=== PATIENT | male | born 1960 | race Caucasian/White ===

== ENCOUNTER 2016-07-02 04:11 | Inpatient (IN) | payer MEDICARE ==
[~2016-07-02] VITALS: Ht 185.4 cm; Wt 137.9 kg
[~2016-07-02 04:11] MED LIST: ASPIRIN EC81 MG PO; BROVANA15 MCG/2 M IH; COLACE-DPS100 MG PO; COUMADIN DPS3 MG PO; COUMADIN6 MG PO; DELTASONE DPS10 MG PO; DESYREL DPS100 MG PO; DULCOLAX-DPS5 MG PO; DUONEB DPS3 ML IH; FETZIMA80 MG PO; FLONASE 0.05% D16 GM NS; FLOVENT DISKUS50 MCG IH; IMDUR DPS30 MG PO; JANTOVEN6 MG PO; KEPPRA DPS500 MG PO; KEPPRA1000 MG PO; KLOR-CON M2020 ME1 PO; LASIX DPS40 MG PO; LASIX DPS80 MG PO; LEVAQUIN DPS750 MG PO; LISINOPRIL5 MG PO; LOTRISONE DPS45 GM TP; LOVENOX DP30 MG/0.3 SQ; METOPROLOL PO; MIRALAX PACKET17 GM PO; NITROSTAT0.4 MG SL; NORVASC DPS10 MG PO; PLAVIX75 MG PO; POTASSIUM PO; PROAIR HFA8.5 GM IH; PROTONIX40 MG PO; PULMICORT1 MG/2 ML IH; RANEXA500 MG PO; TOPROL XL DPS25 MG PO; TRIAMCINOLONE A15 GM TP; TYLENOL EXTRA500 M1 PO; WELLBUTRIN SR150 MG PO; ZESTRIL DPS10 MG PO; ZOCOR DPS40 MG PO
--- NOTE | 2016-07-02 07:05 | ER ---
ADMIT: 07/02/2016 RM/LOC: 520 [facility] MR#: [id number] [address] [facility] [address] [place], [place] [address] ALBINA MARTINEZ [address] [address] Emergency Room Report SEX: M AGE: 55 : 1960 DATE: 07/02/2016 CHIEF COMPLAINT: Respiratory distress. HISTORY OF PRESENT ILLNESS: The patient is a 55-year-old male with diastolic heart failure, COPD, right MCA stroke with left hemiparesis, chronically anticoagulated for AFib, presents tonight with increasing shortness of breath past 2 to 3 hours, treated en route with DuoNeb with minimal improvement. PAST MEDICAL HISTORY: ALLERGIES: MORPHINE, OXYCODONE. MEDICATIONS: Please see nurse's MAR. ILLNESSES: AFib, chronically anticoagulated; diastolic CHF; coronary artery disease, status post multiple interventions; hypertension; hyperlipidemia; COPD; right MCA with left hemiparesis; DVT; chronic kidney disease; seizure disorder; GERD; depression; chronic lymphedema in left upper and lower extremity; subdural hematoma in 1972. OPERATIONS: Bur holes, cardiac bypass in 1999 x1, seven PCI stents, pacemaker for permanent AFib, partial colectomy for diverticulitis with ileostomy. SOCIAL HISTORY: Past smoker. . Lives alone. No health aide. No illicit drugs or alcohol. FAMILY HISTORY: Positive for coronary artery disease. REVIEW OF SYSTEMS: A 12-point review of systems negative for all other systems, illnesses, or operations except as outlined above. PHYSICAL EXAMINATION: VITAL SIGNS: Temp 97.4, pulse 75, respirations 22, BP 139/86, SaO2 of 93% on room air. GENERAL: Mild respiratory distress, nontoxic, non-diaphoretic without jaundice or icterus. HEENT: Normocephalic. No evidence of epistaxis, rhinorrhea, or otorrhea. NECK: Supple without lymphadenopathy or thyromegaly. CHEST: Breath sounds equal, diminished with expiratory wheeze noted throughout. HEART: Regular rate and rhythm without murmur, gallop, or edema. ABDOMEN: Soft, obese, nontender, nondistended without mass or megaly. Bowel sounds hypoactive. EXTREMITIES: Venous stasis dermatitis with lymphedema and weeping areas bilaterally. Homans sign negative. MEDICAL DECISION MAKING: The patient received 2 DuoNebs, Solu-Medrol, magnesium with improvement. Lab remarkable for hemoglobin 12.5, lactic 2.4, potassium 3.3, CRP 0.81, D-dimer 0.19, BNP 459, INR 2.38. EKG shows AFib with ADMIT: 07/02/2016 RM/LOC: 520 [facility] MR#: [id number] [facility] [address] [address] ALBINA MARTINEZ [address] [place] [address] Emergency Room Report SEX: M AGE: 55 : 1960 low voltage, borderline T-waves, prolonged QTc of 540 milliseconds. Chest x- ray, no acute findings. Discussed findings and disposition with Dr. Sosa, who agrees to admit due to the patient's complex medical history as well as tenuous support systems. DIAGNOSES: 1. Acute exacerbation of chronic obstructive pulmonary disease. 2. Diastolic congestive heart failure. 3. Chronic atrial fibrillation, anticoagulated. 4. Venous stasis dermatitis. RECOMMENDATION: Admit inpatient Med/Surg for Dr. Sosa. ADMISSION/DISCHARGE CONDITION: Fair. Mack Montiel MD/ modl JOB #: [id number] CC: Harinder Sosa MD, Attending Physician Harinder Sosa MD, Family Physician Harinder Sosa MD
--- NOTE | 2016-07-05 19:46 | HP ---
ADMIT: 07/02/2016 RM/LOC: 520 [facility] MR#: [id number] [facility]#: [id number] 2620 [facility] [address] [place], [place] [address] ALBINA OLIVIA [address] [address] History and Physical SEX: M AGE: 55 : 1960 DATE OF SERVICE: CHIEF COMPLAINT: Shortness of breath, increased swelling of lower extremities. HISTORY OF PRESENT ILLNESS: Mr. Albina Olivia is a very nice 55-year-old man who is well known to myself. He does have chronic heart failure as well as COPD. He does have chronic dense left hemiparesis. He has been struggling with lymphedema. He is on anticoagulation for atrial fibrillation as well. Several days of increased cough as well as increased edema. He presented to the ER. He did have an appropriate evaluation in the ER, diagnosed with a COPD exacerbation, referred to me for admission. He was given steroids in the ER. I evaluated him at his bedside. He endorses the above history. PAST MEDICAL HISTORY: 1. Chronic atrial fibrillation on chronic anticoagulation. 2. Coronary artery disease with CABG. 3. COPD. 4. Systolic heart failure and diastolic heart failure. 5. History of DVT. 6. Chronic depression. 7. GERD. 8. Dense left hemiparesis secondary to right middle cerebral artery CVA. 9. Hyperlipidemia. 10.Hypertension. 11.Seizure disorder. 12.Chronic lymphedema, left upper extremity and bilateral lower extremities. MEDICATIONS: 1. Keppra 1000 mg daily. 2. Keppra 500 mg at bedtime. 3. Plavix 75 mg daily. 4. Coumadin 3 mg daily. 5. Lisinopril 10 mg daily. 6. Aspirin 81 mg daily. 7. Simvastatin 40 mg at bedtime. 8. Trazodone 100 mg at bedtime. 9. Norvasc 10 mg daily. 10.Imdur 60 mg daily. 11.Imdur 30 mg at night. 12.MiraLax 17 g daily. 13.Flonase 50 mcg inhaled daily. 14.Brovana twice daily. 15.Pulmicort twice daily. 16.Albuterol MDI p.r.n. 17.DuoNeb 4 times daily. 18.Lasix 80 mg daily. 19.Lasix 40 mg at noon. ADMIT: 07/02/2016 RM/LOC: 520 [facility] MR#: [id number] [address] [address] ALBINA OLIVIA [address] [place] [address] History and Physical SEX: M AGE: 55 : 1960 ALLERGIES: TO MORPHINE AND OXYCODONE. FAMILY HISTORY: Positive for coronary artery disease. SOCIAL HISTORY: He lives independently. He is . He has a son. He is a former smoker. He does not drink. REVIEW OF SYSTEMS: Complete review of systems reviewed per HPI. PHYSICAL EXAMINATION: VITAL SIGNS: Blood pressure 158/89, pulse 84, respiratory rate is 18, temperature is 97 degrees, and 93% on room air. GENERAL: He is alert and oriented x3. No acute distress. HEENT: Normocephalic, atraumatic. Extraocular muscles intact. Pupils equal and responsive to light. No nasal discharge. NECK: Supple. HEART: Irregular. LUNGS: Distant bilaterally with wheezing. ABDOMEN: Soft, nontender. EXTREMITIES: Left upper extremity lymphedema, dense left hemiparesis. He has bilateral increased lower extremity edema, right greater than left. He has an ulcer and associated cellulitis on right lower extremity as well. LABORATORY DATA: CBC; white blood cells are 7, hemoglobin is 12, and platelets 163. INR is 2.38. Lactic acid is 2.4. CMP; sodium is 141, potassium is 3.3, chloride is 102, bicarb is 30, BUN is 3, creatinine is 1.1, glucose 106, calcium is 8.4, total bilirubin 0.4, total protein 7.2, albumin is 3.3, AST is 15, ALT is 22, lipase 114, proBNP is 459. Chest x-ray, no vascular congestion. No pneumonia. ASSESSMENT AND PLAN: 1. Acute on chronic respiratory failure secondary to chronic obstructive pulmonary disease exacerbation. He is much improved just with steroids done in the ER. However, continue aggressive pulmonary toilet. I will maintain him on Zithromax and prednisone. 2. Cellulitis with venous stasis ulcer, right lower extremity. Venous stasis ulcer. We will place him on ceftriaxone and vancomycin. We will obtain Wound Care consult. 3. Lymphedema. We will place him in his EdemaWear on his bilateral lower extremities, as well as his left glove and left upper extremity sleeve. We will have Occupational Therapy come to see him as well and see if they can help him learn to use assistive devices, put these on as he does ADMIT: 07/02/2016 RM/LOC: 520 [facility] MR#: [id number] [address] [address] ALBINA OLIVIA [address] [place] [address] History and Physical SEX: M AGE: 55 : 1960 struggle greatly. 4. Hypertensive. May continue him on his chronic regimen. 5. Hyperlipidemia, chronic regimen. 6. Atrial fibrillation on chronic anticoagulation. INR is at goal. We will get daily INRs. 7. Chronic combined systolic and diastolic heart failure. He does not have a terribly elevated BNP, however, he is volume up on exam today. I will give him 80 mg of IV Lasix now and we will reassess and re-dose in the morning. Patient will be maintained on his Coumadin and this will be supervised for DVT prophylaxis. He is a full code. Discussed the plan with the patient, expressed understanding, was in agreement, had no further questions. Harinder Sosa MD/ anette JOB #: [id number] CC: Harinder Sosa, Attending Physician Harinder Sosa, Family Physician
--- NOTE | 2016-07-09 11:47 | DS ---
ADMIT: 07/02/2016 RM/LOC: 520 [facility] MR#: [id number] [facility]#: [id number] 2620 [facility] [address] [place], [place] [address] ALBINA MARTINEZ [address] [address] Discharge Summary SEX: M AGE: 55 : 1960 ADMISSION DATE: 07/02/2016 DISCHARGE DATE: 07/08/2016 DISCHARGE DIAGNOSES: 1. Chronic obstructive pulmonary disease with exacerbation. 2. Acute on chronic systolic congestive heart failure. 3. Chronic lymphedema. 4. Chronic atrial fibrillation, on chronic anticoagulation. 5. Coronary artery disease, status post coronary bypass grafting. 6. History of DVT (deep venous thrombosis). 7. Depression. 8. History of stroke. 9. Hyperlipidemia. 10.Hypertension. 11.History of seizure disorder. 12.Right lower extremity cellulitis. 13.Hypokalemia. CONSULTATIONS: None. PROCEDURES: None. REASON FOR ADMISSION: A very pleasant 55-year-old gentleman with past medical history. Admitted by Dr. Sosa with complaints of increasing edema, cough and shortness of breath. He was seen in the emergency room, and diagnosed with COPD exacerbation and admitted for further evaluation and treatment. For complete details, please see H and P dictated on the day of admission. HOSPITAL COURSE: At the time of admission, the patient was placed on inpatient telemetry bed by my partner, Dr. Harinder Sosa. As mentioned, was placed on telemetry. Was started on antibiotics, nebulized treatments and steroids for COPD exacerbation. He was seen by wound care due to his chronic lymphedema. PT and OT were actually seen and he was also started on IV diuretics. He was thought to have a little bit of a heart failure exacerbation. The patient slowly improved. His cellulitis continued to improve as did his lymphedema. He was hypokalemic and electrolytes replaced. ADMIT: 07/02/2016 RM/LOC: 520 [facility] MR#: [id number] 2620 [facility] [address] [place], [place] [address] ALBINA MARTINEZ [facility] [address] [address] Discharge Summary SEX: M AGE: 55 : 1960 Did well with wound care and he was switched to Med/surg. Diuretics were titrated. The patient continued to improve very slowly. As mentioned, was seen by PT and OT. His Coumadin was continued for treatment of his DVT and so metolazone was added. His antibiotics were tapered. He diuresed nicely. He was placed on fluid restriction. Continued to improve. Ambulated with physical therapy. Was thought to be ready for discharge home on 07/08. Discharge diet is 2 g sodium cardiac diet with fluid restriction by Dr. Sosa. He will finish a course of antibiotics and prednisone per his home med list. The rest of his medications are per his home med list. Activity is as tolerated. He will be seen by [facility] and will have lab recheck in the next couple of days including an INR and a BMP. I will have him see Dr. Sosa within the next 7 days or so. Roge Christensen MD/ pushpa JOB #: [id number] CC: Harinder Sosa MD, Attending Physician Harinder Sosa MD, Family Physician
[2016-07-09] MEDS ORDERED: ZESTRIL DPS10 MG PO (20:08)
[2016-07-09] MEDS ORDERED: KEPPRA DPS500 MG PO ×2 (20:08)
[2016-07-09] MEDS ORDERED: PLAVIX75 MG PO (20:08)
[2016-07-09] MEDS ORDERED: COUMADIN1 MG PO (20:08)
[2016-07-09] MEDS ORDERED: DESYREL DPS100 MG PO (20:09)
[2016-07-09] MEDS ORDERED: ZOCOR DPS40 MG PO (20:09)
[2016-07-09] MEDS ORDERED: ASPIRIN EC81 MG PO (20:09)
[2016-07-09] MEDS ORDERED: NORVASC DPS10 MG PO (20:09)
[2016-07-09] MEDS ORDERED: ISOSORBIDE MONO30 MG PO (20:10)
[2016-07-09] MEDS ORDERED: ISOSORBIDE MONO60 MG PO (20:10)
[2016-07-09] MEDS ORDERED: MIRALAX PACKET17 GM PO (20:10)
[2016-07-09] MEDS ORDERED: FLONASE 0.05% D16 GM NS (20:10)
[2016-07-09] MEDS ORDERED: PULMICORT1 MG/2 ML IH (20:11)
[2016-07-09] MEDS ORDERED: BROVANA15 MCG/2 M IH (20:11)
[2016-07-09] MEDS ORDERED: PROVENTIL HFA6.7 GM IH (20:12)
[2016-07-09] MEDS ORDERED: DUONEB DPS3 ML IH (20:12)
[2016-07-09] MEDS ORDERED: ZAROXOLYN2.5 MG PO (20:13)
[2016-07-09] MEDS ORDERED: LASIX DPS80 MG PO (20:13)
[2016-07-09] MEDS ORDERED: ZITHROMAX250 MG PO (20:13)
[2016-07-09] MEDS ORDERED: DELTASONE DPS10 MG PO (20:15)
[2016-07-09] MEDS ORDERED: KLOR-CON M2020 ME1 PO (20:16)
[2017-01-25] MEDS ORDERED: PULMICORT0.5 MG/2 M IH (18:40)
[2017-01-25] MEDS ORDERED: TYLENOL DPS325 MG PO (18:42)
[2017-01-25] MEDS ORDERED: AMBIEN DPS5 MG PO (18:43)
[2017-01-25] MEDS ORDERED: DULCOLAX-DPS5 MG PO (18:44)
[2017-01-25] MEDS ORDERED: COLACE-DPS100 MG PO (18:44)
[2017-01-25] MEDS ORDERED: BUPROPION XL150 MG PO (18:44)
[2017-01-25] MEDS ORDERED: PROTONIX40 MG PO (18:45)
[2017-01-25] MEDS ORDERED: NORCO 5-325 TA1 EACH PO (18:45)
== END 2016-07-08 16:07 | disposition home health service (06) | DRG 291 ==
LOC: ER 04:11 → 5MS 05:26
PROVIDERS: ADMIT Internal Medicine
DX: I13.0 Hypertensive heart and chronic kidney disease with heart failure and stage 1 through stage 4 chronic kidney disease, or unspecified chronic kidney disease (principal); I50.23 Acute on chronic systolic (congestive) heart failure; J44.1 Chronic obstructive pulmonary disease with (acute) exacerbation; I69.354 Hemiplegia and hemiparesis following cerebral infarction affecting left non-dominant side; L03.115 Cellulitis of right lower limb; L97.919 Non-pressure chronic ulcer of unspecified part of right lower leg with unspecified severity; Z79.01 Long term (current) use of anticoagulants; Z95.1 Presence of aortocoronary bypass graft; I48.2 Chronic atrial fibrillation; G40.909 Epilepsy, unspecified, not intractable, without status epilepticus; E87.6 Hypokalemia; I89.0 Lymphedema, not elsewhere classified; I25.10 Atherosclerotic heart disease of native coronary artery without angina pectoris; E78.5 Hyperlipidemia, unspecified; N18.9 Chronic kidney disease, unspecified; K21.9 Gastro-esophageal reflux disease without esophagitis; F32.9 Major depressive disorder, single episode, unspecified; Z95.5 Presence of coronary angioplasty implant and graft; Z95.0 Presence of cardiac pacemaker; Z86.718 Personal history of other venous thrombosis and embolism; Z87.891 Personal history of nicotine dependence; Z82.49 Family history of ischemic heart disease and other diseases of the circulatory system; Z79.82 Long term (current) use of aspirin

== ENCOUNTER → 2016-07-24 | Outpatient (CLI) | payer MEDICARE ==
[~2016-07-24] MED LIST changes: +AMBIEN DPS5 MG PO; +BUPROPION XL150 MG PO; +COUMADIN1 MG PO; +ISOSORBIDE MONO30 MG PO; +ISOSORBIDE MONO60 MG PO; +NORCO 5-325 TA1 EACH PO; +PROVENTIL HFA6.7 GM IH; +PULMICORT0.5 MG/2 M IH; +TYLENOL DPS325 MG PO; +ZAROXOLYN2.5 MG PO; +ZITHROMAX250 MG PO
--- NOTE | ~2016-07-24 | ECH ---
Transthoracic Echocardiography Report (TTE) Demographics Patient Name ALBINA MARTINEZ Date of Study 07/24/2016 Patient Number [id number] Visit Number [id number] Date of 1960 Room Number Accession Number [id number] Gender Male Age 56 year(s) Referring Chelsey SLAUGHTER Special Education Associate Alis Plata [facility] Physician Ian Gabriel MD Physician Interpreting King Toi Dhillon MD Security Orderly Physician Supervising Ordering Physician Chelsey SLAUGHTER MD/MLP Nurse Stress Hoop Riveter Conclusions Summary Technically fair exam. The estimated left ventricular ejection fraction is 55-60%. Moderate left ventricular hypertrophy. The left atrium is mild to moderately dilated by LA volume index measurement. The right atrium is mildly dilated. No significant valvular abnormalities. The ascending aorta appears mildly dilated. The maximum diameter measures 3.6 cm. Procedure Type of Study TTE procedure:Echo Complete SF. Procedure Date Date: 07/24/2016 Start: 01:05 PM Technical Quality: Fair due to body habitus. Indications:Edema, Shortness of breath, Atrial fibrillation, Congestive heart failure and Coronary artery disease. Appropriate Use Criteria: 9 Height: 72 inches Weight: 300 pounds BSA: 2.53 m Rhythm: Paced HR: 83 bpm BP: 118/80 mmHg Allergies - Morphine. - Other:(Percocet). M-Mode/2D Measurements LV Diastolic Dimension: 4.77 cm LV Systolic Dimension: 3.96 cm LV Septum Diastolic: 1.38 cm LV PW Diastolic: 1.66 cm AO Root Dimension: 3.2 cm Cardiac Output: 3.16 l/min LA Dimension: 5.54 cm Cardiac Index: 1.25 l/min*m RV Diastolic Dimension: 3.27 cm LA volume index: 41 ml/m LVOT: 2.03 cm LVOT VTI: 11.78 cm RV Base: 3.3 cm LV Stroke volume: 38.11 ml RV Mid: 2.8 cm LV Stroke volume index: 15.06 ml/m Doppler Measurements AV Peak Velocity: 0.9 m/s MV Peak E-Wave: 1.04 m/s AV Peak Gradient: 3.24 mmHg AV Mean Gradient: 2.01 mmHg LVOT Peak Velocity: 0.93 m/s AV Area (Continuity):3.32 cm PV Peak Velocity: 0.73 m/s TR Velocity:1.87 m/s PV Peak Gradient: 2.15 mmHg TR Gradient:13.99 mmHg Estimated PASP: 18.99 mmHg Estimated RAP:5 mmHg Estimated RVSP: 19 mmHg RA Area: 23.94 cm Findings Left Ventricle The left ventricle is normal in size . Moderate left ventricular hypertrophy. Diastolic function indeterminate due to patient's arrhythmia. Right Ventricle Normal right ventricle structure and function. Left Atrium The left atrium is mild to moderately dilated by LA volume index measurement. Right Atrium The right atrium is mildly dilated. Mitral Valve Mild thickening of the mitral valve leaflets. Mild mitral annular calcification. Trivial mitral regurgitation by color Doppler. Aortic Valve The aortic valve was not well imaged. Tricuspid Valve Normal tricuspid valve structure and function. Trivial tricuspid regurgitation by color Doppler. Estimated pulmonary pressures within normal limits. Pulmonic Valve The pulmonic valve is not well visualized. Pericardial Effusion No evidence of pericardial effusion. Miscellaneous The ascending aorta appears mildly dilated. The maximum diameter measures 3.6 cm. Pleural Effusion No evidence of pleural effusion. Contractility Score LV regional wall motion:(0-Non visualized 1-Normal 2-Hypokinesis 3-Akinesis 4-Dyskinesis 5-Aneurysm) Signature
== END | disposition home or self-care (01) ==
LOC: CARD 07-19 13:00
DX: R06.02 Shortness of breath (principal); I51.7 Cardiomegaly; R60.9 Edema, unspecified

== ENCOUNTER 2016-09-16 15:58 | Emergency (ER) | payer MEDICARE ==
[~2016-09-16 15:58] MED LIST changes: -AMBIEN DPS5 MG PO; -BUPROPION XL150 MG PO; -NORCO 5-325 TA1 EACH PO; -PULMICORT0.5 MG/2 M IH; -TYLENOL DPS325 MG PO
--- NOTE | 2016-09-25 14:40 | ER ---
ADMIT: 09/16/2016 RM/LOC: ER [facility] MR#: [id number] 2620 [facility] [address] [place], [place] [address] ALBINA MARTINEZ [address] [address] Emergency Room Report SEX: M AGE: 56 : 1960 DATE: 09/16/2016 ADDENDUM: This patient comes to the ER because he has had chest pain for the last day. He states he has issues with chronic chest pain and he feels like what is happening now is he is having problems with his COPD. He has been short of breath. He has had a bypass surgery, and has 7 stents in his heart. He is having cough. On physical exam, I did not hear a lot of movement of air in his lungs. At this time, he has no chest pain, and when I palpate through his chest, I did not elicit any pain. He was given a DuoNeb and Decadron. When I went to re-evaluate him, he felt quite a bit better. We did ambulate him and his pulse ox did go down to 89%; however, he normally does not ambulate very much or often because of his CVA. He did feel comfortable to go home with prednisone and Zithromax. He is to come to the ER if he has shortness of breath, difficulty breathing or follow up with Dr. Sosa. His cardiac enzymes were normal and his chest x-ray was negative for anything acute. Please see my T-sheet. EMILY Dhillon / Edward Floyd MD / sarahl JOB #: [id number] CC: Edward Floyd MD, Attending Physician Harinder Sosa MD, Family Physician
[2017-01-25] MEDS ORDERED: PULMICORT0.5 MG/2 M IH (18:40)
[2017-01-25] MEDS ORDERED: TYLENOL DPS325 MG PO (18:42)
[2017-01-25] MEDS ORDERED: AMBIEN DPS5 MG PO (18:43)
[2017-01-25] MEDS ORDERED: BUPROPION XL150 MG PO (18:44)
[2017-01-25] MEDS ORDERED: DULCOLAX-DPS5 MG PO (18:44)
[2017-01-25] MEDS ORDERED: COLACE-DPS100 MG PO (18:44)
[2017-01-25] MEDS ORDERED: NORCO 5-325 TA1 EACH PO (18:45)
[2017-01-25] MEDS ORDERED: PROTONIX40 MG PO (18:45)
== END 2016-09-16 18:00 | disposition home or self-care (01) ==
LOC: ER 15:58
DX: J44.1 Chronic obstructive pulmonary disease with (acute) exacerbation (principal); I10 Essential (primary) hypertension; Z86.73 Personal history of transient ischemic attack (TIA), and cerebral infarction without residual deficits; Z95.1 Presence of aortocoronary bypass graft; Z88.6 Allergy status to analgesic agent; Z79.01 Long term (current) use of anticoagulants; Z79.899 Other long term (current) drug therapy; Z79.82 Long term (current) use of aspirin

== ENCOUNTER → 2016-10-16 | Outpatient (CLI) | payer MEDICARE ==
[~2016-10-16] MED LIST changes: +AMBIEN DPS5 MG PO; +BUPROPION XL150 MG PO; +NORCO 5-325 TA1 EACH PO; +PULMICORT0.5 MG/2 M IH; +TYLENOL DPS325 MG PO
== END | disposition home or self-care (01) ==
LOC: RAD.S 10-06 11:00
DX: R41.89 Other symptoms and signs involving cognitive functions and awareness (principal); R27.0 Ataxia, unspecified; R29.810 Facial weakness; R26.9 Unspecified abnormalities of gait and mobility; R41.0 Disorientation, unspecified

== ENCOUNTER → 2016-10-18 | Outpatient (CLI) | payer MEDICARE | END | disposition home or self-care (01) | LOC: RAD.S 14:25 | DX: R29.810 Facial weakness (principal); R26.9 Unspecified abnormalities of gait and mobility; R41.0 Disorientation, unspecified ==

== ENCOUNTER 2016-10-30 14:07 | Emergency (ER) | payer MEDICARE ==
[~2016-10-30 14:07] MED LIST changes: -AMBIEN DPS5 MG PO; -BUPROPION XL150 MG PO; -NORCO 5-325 TA1 EACH PO; -PULMICORT0.5 MG/2 M IH; -TYLENOL DPS325 MG PO
--- NOTE | 2016-11-16 16:41 | ER ---
ADMIT: 10/30/2016 RM/LOC: ER [facility] MR#: [id number] [address] [place] [address] [place], [place] [address] MICHELLE ALBINA Harvey [address] [address] Emergency Room Report SEX: M AGE: 56 : 1960 DATE: 10/30/2016 A 56-year-old gentleman, comes to the Emergency Department by squad with abdominal pain. This is related to his ventral hernia. He said the pain has just been coming more intense. He did see Dr. Sosa and Dr. Guidry both for this pain last week. They said they are discussing whether surgery is indicated at this point. He is eating, drinking, urinating, having bowel movements without any difficulty. It is merely a pain control issue. We will speak with Dr. Sosa and we will send him home with a prescription for [place], and have him follow up with Dr. Sosa this week. DIAGNOSIS: Exacerbation of chronic abdominal pain. Edward Floyd MD/ anette JOB #: [id number] CC: Harinder Trevino MD, Attending Physician Harinder Sosa MD, Family Physician
[2017-01-25] MEDS ORDERED: PULMICORT0.5 MG/2 M IH (18:40)
[2017-01-25] MEDS ORDERED: TYLENOL DPS325 MG PO (18:42)
[2017-01-25] MEDS ORDERED: AMBIEN DPS5 MG PO (18:43)
[2017-01-25] MEDS ORDERED: DULCOLAX-DPS5 MG PO (18:44)
[2017-01-25] MEDS ORDERED: BUPROPION XL150 MG PO (18:44)
[2017-01-25] MEDS ORDERED: COLACE-DPS100 MG PO (18:44)
[2017-01-25] MEDS ORDERED: PROTONIX40 MG PO (18:45)
[2017-01-25] MEDS ORDERED: NORCO 5-325 TA1 EACH PO (18:45)
== END 2016-10-30 15:25 | disposition home or self-care (01) ==
LOC: ER 14:07
DX: R10.9 Unspecified abdominal pain (principal); G89.29 Other chronic pain; I10 Essential (primary) hypertension; J44.9 Chronic obstructive pulmonary disease, unspecified; Z90.49 Acquired absence of other specified parts of digestive tract; Z86.73 Personal history of transient ischemic attack (TIA), and cerebral infarction without residual deficits; Z93.2 Ileostomy status; Z98.890 Other specified postprocedural states; Z79.82 Long term (current) use of aspirin; Z79.01 Long term (current) use of anticoagulants; Z79.899 Other long term (current) drug therapy

== ENCOUNTER 2017-01-23 05:25 | Observation (INO) | payer MEDICARE ==
[~2017-01-23] VITALS: Ht 185.4 cm; Wt 153.7 kg
--- NOTE | ~2017-01-23 | OR ---
ADMIT: 01/23/2017 RM/LOC: 618 [facility] MR#: [id number] [id number] [place], [place] [address] ALBINA MARTINEZ [address] [address] Operative/Delivery Room Report SEX: M AGE: 56 : 1960 SURGERY DATE: 01/23/2017 SURGEON: Schuyler Guidry MD PREOPERATIVE DIAGNOSIS: Incisional hernia at ostomy site, right upper quadrant. POSTOPERATIVE DIAGNOSIS: Incisional hernia at ostomy site, right upper quadrant. PROCEDURE: Open primary repair of this small hernia. MODEL MAKER: EMILY Nixon who was necessary for adequate exposure, retraction, and completion of this case. ANESTHESIA: General endotracheal tube anesthesia. ESTIMATED BLOOD LOSS: 25 mL or less. INDICATION FOR PROCEDURE: Please see H and P. DESCRIPTION OF PROCEDURE: After the risks, benefits, possible complications, and the alternatives had been explained, and informed consent had been obtained, he was taken back to the operating room, underwent general anesthesia, and the surgical field was prepped and draped in a sterile manner. I excised the skin and subcutaneous tissue around the previous ostomy site in his right upper quadrant down through skin and subcutaneous tissue, and as I got down there, only found a small defect about 2 cm in size, he had any defect through the anterior fascia there. Basically opened the fascia and felt along. All the posterior sheath around the rectus appeared normal. So I ended up closing the muscle over top of this with some 0 Vicryl and then with some 0 Ethibond, closed interrupted [id number] fashion and the anterior fascia over this. Lingle no other defects anywhere there. Then closed subcutaneous tissue with some 0 Vicryl and the skin with gabrielle. He tolerated it well. He was extubated, taken to recovery room in stable and satisfactory condition. Schuyler Guidry MD/ modl JOB #: [id number] CC: Schuyler Guidry, Attending Physician Harinder Sosa, Family Physician
[2017-01-25] MEDS ORDERED: PULMICORT0.5 MG/2 M IH (18:40)
[2017-01-25] MEDS ORDERED: TYLENOL DPS325 MG PO (18:42)
[2017-01-25] MEDS ORDERED: AMBIEN DPS5 MG PO (18:43)
[2017-01-25] MEDS ORDERED: COLACE-DPS100 MG PO (18:44)
[2017-01-25] MEDS ORDERED: BUPROPION XL150 MG PO (18:44)
[2017-01-25] MEDS ORDERED: DULCOLAX-DPS5 MG PO (18:44)
[2017-01-25] MEDS ORDERED: NORCO 5-325 TA1 EACH PO (18:45)
[2017-01-25] MEDS ORDERED: PROTONIX40 MG PO (18:45)
== END 2017-01-24 12:25 | disposition home or self-care (01) ==
LOC: SSS 05:25 → UNDOADMOB 05:25 → WOR 05:25 → 6PED 05:26 → WOR 08:20 → 6PED 08:20 → SSS 08:38 → EDSTATUS 08:38 → 6PED 01-24 12:25
PROVIDERS: ADMIT Surgery
PROC: 0WQF0ZZ Repair Abdominal Wall, Open Approach (ICD-10-PCS; principal; 2017-01-23)
DX: K43.2 Incisional hernia without obstruction or gangrene (principal); I11.0 Hypertensive heart disease with heart failure; I50.9 Heart failure, unspecified; I25.2 Old myocardial infarction; J44.9 Chronic obstructive pulmonary disease, unspecified; Z95.0 Presence of cardiac pacemaker; I25.10 Atherosclerotic heart disease of native coronary artery without angina pectoris; Z95.5 Presence of coronary angioplasty implant and graft; K21.9 Gastro-esophageal reflux disease without esophagitis; E66.9 Obesity, unspecified; Z86.73 Personal history of transient ischemic attack (TIA), and cerebral infarction without residual deficits; Z95.1 Presence of aortocoronary bypass graft; Z88.6 Allergy status to analgesic agent; Z87.891 Personal history of nicotine dependence; Z88.8 Allergy status to other drugs, medicaments and biological substances; Z79.899 Other long term (current) drug therapy; Z98.890 Other specified postprocedural states; Z90.49 Acquired absence of other specified parts of digestive tract; Z79.82 Long term (current) use of aspirin; Z68.41 Body mass index [BMI] 40.0-44.9, adult